=== PATIENT | female | born 1965 | race Caucasian/White ===

== ENCOUNTER 2016-05-26 12:27 | Day surgery (SDC) | payer OTHER ==
[2016-05-25 15:32] VITALS: BMI 44.0
[~2016-05-26] VITALS: Ht 157.5 cm; Wt 109.1 kg
[~2016-05-26 12:27] MED LIST: ACET-1256 PO; ALBINS/ INH; AMIT10TA6 PO; AMLO-110 PO; AMOX875T PO; ATOR-22 PO; CHOL1000 PO; CITA40TA4 PO; CLON1TAB3 PO; DOCU100C31 PO; DVN80 PO; INSDGI SC; INSU100I SQ; LACTATED RINGER'S 1000ML 1,000 ML IV SCH; OMEP40CA41 PO; ONDA4TAB46 PO; OXYC1TAB3 PO; PHYT100T PO; POTA1POW PO; SIME80CH12 PO; SUCR1TAB29 PO; VITAMIN A PO; VITAMIN D PO; VITAMIN E PO
[2016-05-26 12:50] VITALS: BP 148/86; PULSE 90; TEMP 36.5; O2SAT 95; Ht 157.5 cm; Wt 109.1 kg
[2016-05-26] MEDS ORDERED: NURSING VERBAL MED ORDER ONE (13:45)
--- NOTE | 2016-05-26 13:57 | Endo History and Physical ---
History & Physical Date of Service: May 26, 2016. Chief Complaint: Stent readjustment Referring Physician: olvin preston History of Present Illness Pt with duodenal perf s/p stent , now with slippage of stent. Past Surgical History Hx Cardiac Surgery: No Hx Abdominal Surgery: Yes (C SECTION X 2 , [place] ) Hx Post-Op Nausea and Vomiting: No Hx Cancer Surgery: No Hx Thoracic Surgery: No Hx Orthopedic: No Hx Urinary Tract Surgery: No Social History Smoking Status: Never Smoker Hx Substance Use: No Hx Alcohol Use: No Allergies Coded Allergies: No Known Allergies (Unverified , 05/26/16) Current Medications Reported Home Medications Medications Dose Route/Sig Max Daily Dose Days Date Category Dose Instructions Klonopin (Clonazepam) 1 Mg Tab 1 Mg PO HS 05/25/16 Reported Diovan (Valsartan) 80 Mg Tab 80 Mg PO QAM 05/25/16 Reported Docusate Sodium 100 Mg Cap 1 Cap PO BID 05/25/16 Reported Augmentin 875-125 mg (Amoxicillin & Pot Clavulanate) 1 Tab Tab 1 Tab PO BID 05/25/16 Reported Lantus (Insulin Glargine) 100 Unit/Ml Inj 8 Units SC QPM 05/25/16 Reported Klor-Con Pwd (Potassium Chloride) 20 Meq Pack 20 Meq PO QAM 05/25/16 Reported Roxicodone Ir (Oxycodone HCl) 5 Mg Tab 5 Mg PO Q6H PRN 05/25/16 Reported Vitamin D3 (Cholecalciferol) 1,000 Unit Tab 1 Tab PO QAM 05/25/16 Reported [Vitamin A/D/E] 1 Dose PO QAM 05/25/16 Reported Vitamin K (Phytonadione) 100 Mcg Tab 100 Mg PO BID 05/25/16 Reported Norvasc (Amlodipine Besylate) 5 Mg Tab 5 Mg PO QAM 05/25/16 Reported Elavil (Amitriptyline Hcl) 10 Mg Tab 10 Mg PO HS 05/25/16 Reported Carafate (Sucralfate) 1 Gm Tab 1 Gm PO ACHS 05/25/16 Reported Prilosec (Omeprazole) 40 Mg Cap 40 Mg PO QAM 05/25/16 Reported Humalog (Insulin Lispro (Human)) 100 Unit/Ml Inj 1 Dose SQ ACHS 05/25/16 Reported 80-150= 0 UNITS 151-200 = 2 UNITS 201-250 =4 UNITS 251-300 = 6 UNITS GREATER THAN 300 GIVE 8 UNITS PATIENT STATES SHE HAS NOT BEEN DOING SINCE HER DIET HAS CHANGED DUE TO THIS STENT Mylicon (Simethicone) 80 Mg Chw 80 Mg PO TID PRN 05/25/16 Reported Tylenol (Acetaminophen) 500 Mg Tab 500 Mg PO QID PRN 05/25/16 Reported Proventil 0.083% 2.5MG/3ML (Albuterol Sulf) 2.5 Mg/3 Ml Nebu 2.5 Mg INH QID PRN 05/25/16 Reported Lipitor (Atorvastatin Calcium) 20 Mg Tab 20 Mg PO HS 05/25/16 Reported Citalopram Hydrobromide (Citalopram) 40 Mg Tab 1 Tab PO HS 05/25/16 Reported Vital Signs Weight (Kilograms): 109.09 Height (Feet): 5 Height (Inches): 2 Date Time Temp Pulse Resp B/P Pulse Ox O2 Delivery O2 Flow Rate FiO2 05/26/16 12:50 36.5 90 18 148/86 95 Room Air Physical Exam General Appearance: no apparent distress Respiratory/Chest: Auscultation: breath sounds normal Cardiovascular: Heart Auscultation: RRR Abdomen: Inspection & Palpation: soft Assessment and Plan Plan for EGD aith wtsent adjustment
[2016-05-26] MEDS ORDERED: MIDAZOLAM HCL 1 MG/ML 2ML VIAL ONE (13:59)
[2016-05-26] MEDS ORDERED: FENTANYL CITRATE INJ 50 MCG/1 ML 2 ML VIAL ONE (13:59)
[2016-05-26] MEDS ORDERED: AMPICILLIN/SULBACTAM SOD INJ 3,000 MG in SODIUM CHLORIDE 0.9% 100ML 100 ML IV SCH (14:00)
[2016-05-26] MEDS ORDERED: SUCCINYLCHOLINE CHLORIDE 20 MG/ML 10 ML VIAL IV ONE (14:03)
[2016-05-26] MEDS ORDERED: ONDANSETRON INJ 2 MG/ML 2 ML VIAL ONE (14:03)
[2016-05-26] MEDS ORDERED: PROPOFOL IV EMULSION 10 MG/ML 20 ML VIAL IV ONE ×2 (14:03→14:42)
[2016-05-26] MEDS ORDERED: LIDOCAINE HCL 2% 2 ML VIAL (20MG/ML) ONE (14:03)
--- NOTE | 2016-05-26 15:04 | Discharge Instructions ---
Endoscopy Patient Instructions Date / Procedure(s) Performed May 26, 2016. EGD Allergy Information Coded Allergies: No Known Allergies (Unverified , 05/26/16) Discharge Date / Findings May 26, 2016. Stent in place at gastroenteric anastamosis, repositoned. Provider Instructions Activity Restrictions - No exercising or heavy lifting for 24 hours. - Do not drink alcohol the day of the procedure. - Do not drive a car or operate machinery until the day after the procedure. - Do not make any important decisions or sign important papers in 24 hours after the procedure. Following Day: - Return to full activity which may include returning to work/school. Diet Start your diet with liquids and light foods (jello, soup, juice, toast). Then eat your usual diet if not nauseated. Treatment For Common After Affects For mild abdominal pain, bloating, or excessive gas: - Rest - Eat lightly - Lie on right side Follow-Up Information Follow-up with as scheduled Anesthesia Information What You Should Know You have had a procedure that required some medicine to reduce anxiety and discomfort. This treatment is called moderate sedation. After receiving the treatment, you may be sleepy, but you will be able to breathe on your own. The effects of the treatment may last for several hours. Follow these instructions along with Activity/Diet recommendations noted above: * Do NOT do anything where dizziness or clumsiness would be dangerous. * Rest quietly at home today, then you can be up and about tomorrow. * Have a responsible person stay with you the rest of today. * You may have had an I.V. today. If so, you may take the dressing off later today. Recommendations Call your doctor if: * Trouble breathing * Continuous vomiting for more than 24 hours * Temperature above 101 degrees * Severe abdominal pain or bloating * Pain not relieved by pain medicine ordered * There is increased drainage or redness from any incision * A large amount of rectal bleeding greater than 2-3 tablespoons. (If you had a polyp/s removed or have hemorrhoids, a small amount of blood - from the rectum is to be expected.) * You have any unanswered questions or concerns. IN THE EVENT OF A SERIOUS EMERGENCY, GO TO THE NEAREST EMERGENCY ROOM Your discharge instructions were prepared by provider Meera Rayo. Patient Instructions Signature Page Jonel Devlin Patient (or Guardian) Signature/Date: I have read and understand the instructions given to me by my caregivers. Caregiver/RN/Doctor Signature/Date: The above-named patient and/or guardian has received patient instructions on this date. + Original Patient Signature Page (only) stays with chart. Please make copy for patient.
[2016-05-26] MEDS ORDERED: ATROPINE SULFATE 0.1 MG/ML 5ML SYR IV PRN (15:15)
[2016-05-26] MEDS ORDERED: FENTANYL CITRATE INJ 50 MCG/1 ML 2 ML VIAL IV PRN (15:15)
[2016-05-26] MEDS ORDERED: ONDANSETRON INJ 2 MG/ML 2 ML VIAL IV PRN (15:15)
[2016-05-26] MEDS ORDERED: EpHEDrine SULFATE INJ 50 MG/ML AMP IV PRN (15:15)
--- NOTE | 2016-05-26 15:37 | Anesthesiology Progress Note ---
Anesthesia Post Op Note Date & Time May 26, 2016 at 15:37 Vital Signs Pain Intensity: 0 Vital Signs Past 12 Hours Date Time Temp Pulse Resp B/P Pulse Ox O2 Delivery O2 Flow Rate FiO2 05/26/16 15:30 156/77 05/26/16 15:28 36.7 73 22 156/77 97 Room Air 05/26/16 15:28 73 19 05/26/16 15:28 74 19 97 05/26/16 15:25 147/77 05/26/16 15:23 75 24 05/26/16 15:23 74 24 98 05/26/16 15:22 75 19 05/26/16 15:22 75 19 05/26/16 15:22 74 19 98 05/26/16 15:22 74 19 98 05/26/16 15:20 155/78 05/26/16 15:20 155/78 05/26/16 15:17 79 27 05/26/16 15:17 79 27 96 05/26/16 15:17 79 27 96 05/26/16 15:17 79 27 05/26/16 15:15 141/91 05/26/16 15:15 141/91 05/26/16 15:12 79 21 97 05/26/16 15:12 79 21 97 05/26/16 15:12 80 21 05/26/16 15:12 80 21 05/26/16 15:10 155/78 05/26/16 15:10 155/78 05/26/16 15:07 77 15 92 05/26/16 15:07 78 15 05/26/16 15:07 77 15 92 05/26/16 15:07 78 15 05/26/16 15:05 135/64 05/26/16 15:05 135/64 05/26/16 15:02 36.2 85 17 138/71 96 Room Air 05/26/16 15:02 81 17 138/71 94 05/26/16 15:02 81 17 05/26/16 15:02 81 17 05/26/16 15:02 81 17 138/71 94 05/26/16 12:50 36.5 90 18 148/86 95 Room Air Notes Mental Status: alert / awake / arousable, participated in evaluation Pt Amnestic to Procedure: Yes Nausea / Vomiting: adequately controlled Pain: adequately controlled Airway Patency, RR, SpO2: stable & adequate BP & HR: stable & adequate Hydration State: stable & adequate Anesthetic Complications: no major complications apparent
[2016-05-26 15:45] VITALS: BP 137/74; PULSE 72; TEMP 36.8; O2SAT 96
[2016-05-26 16:15] VITALS: BP 152/75; PULSE 76; O2SAT 95
[2016-05-26 16:35] VITALS: BP 158/80; PULSE 88; TEMP 36.9; O2SAT 99
--- NOTE | 2016-05-27 00:44 | GI REPORT ---
Procedure Date: 05/26/2016 2:29 PM Procedure: Upper GI endoscopy Indications: Management of operative complication: reposition stent placed for anastamotic leak Medicines: See the Anesthesia note for documentation of the administered medications Complications: No immediate complications. Estimated Blood Loss: Estimated blood loss: none. Procedure: Pre-Anesthesia Assessment: - ASA Grade Assessment: III - A patient with severe systemic disease. After obtaining informed consent, the endoscope was passed under direct vision. Throughout the procedure, the patient's blood pressure, pulse, and oxygen saturations were monitored continuously. The On-site loaner was introduced through the mouth, and advanced to the jejunum. The upper GI endoscopy was accomplished without difficulty. The patient tolerated the procedure well. Findings: The examined esophagus was normal. The stomach pouch was normal. There was a stent in place. The proximal edge of the stent appeared to be embedded at the gastroenteric anastamosis. Under fluroscopic guidance, the string at the proximal edge of the stent was grabbed, and the stent was repositioned so that the bear claw clip was in the middle of the stent. Impression: -Stent repositioned. Recommendation: - Discharge patient to home. Meera Mckenzie M.D. Meera Mckenzie MD 05/26/2016 3:03:33 PM This report has been signed electronically. Note Initiated On: 05/26/2016 2:29 PM I attest to the content of the Intraoperative Record and orders documented therein, exceptions below
== END 2016-05-26 16:40 | disposition home or self-care (01) ==
LOC: C.ACU 12:27
PROVIDERS: ATTEND Internal Medicine Gastroenterology
DX: T85.598A Other mechanical complication of other gastrointestinal prosthetic devices, implants and grafts, initial encounter (principal); Z98.84 Bariatric surgery status; Y83.2 Surgical operation with anastomosis, bypass or graft as the cause of abnormal reaction of the patient, or of later complication, without mention of misadventure at the time of the procedure; I10 Essential (primary) hypertension; E11.9 Type 2 diabetes mellitus without complications; Z79.4 Long term (current) use of insulin